=== PATIENT | male | born 1995 | race Caucasian/White ===

== ENCOUNTER 2022-06-29 17:45 | Emergency (ER) | payer OTHER, SELFPAY ==
[2022-06-29 17:59] VITALS: BP 153/81; PULSE 96; RESP 16; TEMP 37.2; O2SAT 99
--- NOTE | 2022-06-29 18:06 | ED.GENADULT ---
HPI - General Adult General Chief complaint: Skin/Abscess/Foreign Body Stated complaint: tail bone pain Time Seen by Provider: 06/29/22 18:07 Source: patient, RN notes reviewed and old records reviewed Mode of arrival: ambulatory Limitations: no limitations History of Present Illness HPI narrative: 27 year old male presents to [facility] care with complaints of of having tail bone region discomfort pressure sensation for the past 2 days. Patient denies any injury to area. He reports that he feel like area below his tail bone has pressure and inflammation with tenderness. Patient denies any fevers chills or sweats. Patient reports that about 4 years ago he had similar sensation and thought the pants he was wearing was irritated his skin.He states that he has been taking Ibuprofen for his discomfort. MD complaint: tail bone area discomfort Treatments prior to arrival: NSAID Related Data Allergies Allergy/AdvReac Type Severity Reaction Status Date / Time No Known Allergies Allergy Unknown Verified 06/29/22 17:57 Review of Systems Review of Systems: CONSTITUTIONAL: Denies fever, chills, or sweats. EYES: Denies visual changes, redness, or discharge. ENT: Denies rhinorrhea, congestion, sore throat, or otalgia. CARDIOVASCULAR: Denies chest pain, palpitations, or edema. RESPIRATORY: Denies cough or dyspnea. GASTROINTESTINAL: Denies abdominal pain, nausea, vomiting, or diarrhea. GENITOURINARY: Denies dysuria or hematuria. SKIN: Denies rash or itching. MUSCULOSKELETAL: Positive for tail bone area pain, pressure, no joint pain, or myalgia. NEUROLOGIC: Denies headache, numbness, or weakness. PSYCHIATRIC: Denies anxiety or depression. All systems reviewed & are unremarkable except as noted in HPI and below PMFSH Past Medical History Medical History (Updated 07/01/22 @ 20:57 by Karolyn Rehman NP) Arm fracture, left Finger fracture right 5th Surgical History Surgical History (Updated 07/01/22 @ 20:56 by Karolyn Rehman NP) [place] teeth extracted Social History Social History (Updated 07/01/22 @ 20:55 by Karolyn Rehman NP) Smoking status: Never smoker Alcohol intake: current Alcohol use details: social Substance use type: does not use Gender identity (if verbalized by the patient): Male Comments At time of signature, agree with nursing past medical, surgical, social and family history. There is no relevant family history pertinent to the presenting complaint Exam Narrative: GENERAL: Well-appearing, well-nourished, and in no acute distress. HEAD: Normocephalic, atraumatic. EYES: PERRLA and EOMI. ENT: Nares clear, no rhinorrhea or epistaxis. Mucous membranes moist.ormal with good light reflex, throat pink with no lesions or exudates or tonsil swelling NECK: Supple.no lymphadenopathy CHEST: Clear to auscultation. No respiratory distress.SAO2 99% on air HEART: Regular rate and rhythm. No murmur heard. Normal peripheral pulses. ABDOMEN: Soft, nontender, nondistended, normal active bowel sounds. tissue below tail bone bilateral sides of cleft with mild swelling no redness or evidence of abscess, is tender to palpation. EXTREMITIES: Normal range of motion. No edema. SKIN: Warm, dry, no rash. NEURO: No focal deficits. Alert and oriented x3. Course Course Level of Care: Express Care Visit Vital Signs Vital signs: Vital Signs Temperature 37.2 C 06/29/22 17:59 Pulse Rate 96 06/29/22 17:59 Respiratory Rate 16 06/29/22 17:59 Blood Pressure 153/81 H 06/29/22 17:59 Pulse Oximetry 99 06/29/22 17:59 Oxygen Delivery Room Air 06/29/22 17:59 Temperature 37.2 C 06/29/22 17:59 Pulse Rate 96 06/29/22 17:59 Respiratory Rate 16 06/29/22 17:59 Blood Pressure 153/81 H 06/29/22 17:59 Pulse Oximetry 99 06/29/22 17:59 Oxygen Delivery Room Air 06/29/22 17:59 Medical Decision Making Differential Diagnosis Differential Diagnosis: tail bone pain,pilonidal cyst, tissue swelling,
== END 2022-06-29 18:40 | disposition home or self-care (01) ==
PROVIDERS: Emergency Provider Registered Nurse
DX: L05.91 Pilonidal cyst without abscess (principal)
CPT/HCPCS: 99213; G0463